=== PATIENT | male | born 1965 | race Caucasian/White ===

== ENCOUNTER 2016-05-31 10:29 | Emergency (ER) | payer BC ==
--- NOTE | 2016-05-31 12:15 | RAD ---
HISTORY: Distal fifth metacarpal pain, right hand redness and swelling and COMPARISONS: None VIEWS: 4, Frontal, lateral, and oblique views of the right hand FINDINGS: BONE DENSITY: Normal. BONES: There is no displaced fracture. JOINTS: There is no arthropathy. ALIGNMENT: There is no dislocation. SOFT TISSUES: There is coarse calcification along the palmar aspect of the fifth MCP joint. OTHER FINDINGS: None. IMPRESSION: 1. SOFT TISSUE CALCIFIC LESION ALONG THE PALMAR ASPECT OF THE FIFTH MCP JOINT. THIS MAY REPRESENT DYSTROPHIC CALCIFICATION, OR CALCIFICATION ASSOCIATED WITH CRYSTALLINE ARTHROPATHY. 2. NO ACUTE OSSEOUS INJURY. IF SYMPTOMS PERSIST, RECOMMEND REPEAT IMAGING
--- NOTE | 2016-05-31 12:31 | UC ---
Hand/Wrist HPI - HPI Summary HPI Summary: HAD BEEN RAKING THIS WEEKEND, PAIN AND SWELLING TO (DISTAL 5TH METACARPAL ASPECT OF) RIGHT HAND. NO INJURY. SWELLING. - History Of Current Complaint Chief Complaint: UCUpperExtremity Stated Complaint: HAND PAIN Time Seen by Provider: 05/31/16 11:25 Hx Obtained From: Patient Onset/Duration: Sudden Onset, Lasting Days, Still Present Severity Initially: Mild Severity Currently: Mild Character Of Pain: Dull, Aching Aggravating Factor(s): Movement, Flexion Alleviating: Nothing Associated Signs And Symptoms: Positive: Swelling Related History: Dominant Hand Right - Allergies/Home Medications Allergies/Adverse Reactions: Allergies Allergy/AdvReac Type Severity Reaction Status Date / Time No Known Allergies Allergy Verified 05/31/16 11:22 Home Medications: Home Medications Citalopram TAB* [Celexa TAB*] 10 mg PO DAILY 05/31/16 [History Confirmed ] PMH/Surg Hx/FS Hx/Imm Hx Previously Healthy: Yes - Family History Known Family History: Negative: Diabetes - Social History Occupation: Employed Full-time Lives: With Family Alcohol Use: Daily Substance Use Type: None Smoking Status (MU): Never Smoked Tobacco Review of Systems Constitutional: Negative Skin: Negative Eyes: Negative ENT: Negative Respiratory: Negative Cardiovascular: Negative Gastrointestinal: Negative Genitourinary: Negative Motor: Negative Neurovascular: Negative Musculoskeletal: Arthralgia, Edema, Myalgia Neurological: Negative Psychological: Negative All Other Systems Reviewed And Are Negative: Yes Physical Exam Triage Information Reviewed: Yes Appearance: Well-Appearing, Well-Nourished, Pain Distress - MILD Vital Signs: Initial Vital Signs Temp 98.3 F 05/31/16 11:19 Pulse 82 05/31/16 11:19 Resp 16 05/31/16 11:19 BP 136/84 05/31/16 11:19 Pulse Ox 100 05/31/16 11:19 Vital Signs Reviewed: Yes Eye Exam: Normal ENT Exam: Normal ENT: Positive: Normal ENT inspection, Hearing grossly normal, Pharynx normal, TMs normal Dental Exam: Normal Neck exam: Normal Neck: Positive: Supple, Nontender, No Lymphadenopathy Respiratory Exam: Normal Respiratory: Positive: Chest non-tender, Lungs clear, Normal breath sounds, No respiratory distress Cardiovascular Exam: Normal Cardiovascular: Positive: RRR, No Murmur Abdominal Exam: Normal Musculoskeletal: Positive: Strength Intact, ROM Intact, Edema @ - RIGHT DISTAL 5TH METACARPAL, Other: - PAIN RIGHT DISTAL 5TH METACARPAL Neurological Exam: Normal Psychological Exam: Normal Skin Exam: Normal Hand/Wrist Course/Dx - Differential Dx/Diagnosis Differential Diagnosis/HQI/PQRI: Fracture, Sprain, Strain Provider Diagnoses: RIGHT DISTAL 5TH METACARPAL:CALCIFIC LESION Discharge - Discharge Plan Condition: Stable Disposition: HOME Patient Education Materials: Finger Sprain (ED) Referrals: Jairo Cornejo MD [Medical Doctor] - Terrence Tang MD [Primary Care Provider] -
== END 2016-05-31 12:46 | disposition home or self-care (01) ==
LOC: UCEAST 10:29
DX: M25.841 Other specified joint disorders, right hand (principal)
CPT/HCPCS: 99201; G0463

== ENCOUNTER 2016-10-15 13:06 | Emergency (ER) | payer BC ==
[2016-10-15 13:12] VITALS: BP 138/92
[2016-10-15] MEDS ORDERED: Cyclobenzaprine TAB* 10 MG PO ONE (14:00)
--- NOTE | 2016-10-15 14:06 | UC ---
Back Pain HPI - HPI Summary HPI Summary: This is a 51 yo male who is otherwise healthy who presents with c/o R sided back /rib pain. Pain started suddenly last night while in the shower. He was able to get some sleep last night, but awoke this am with pain. He thought it was improving as the morning went on, but he then sneezed and had sudden severe pain , that caused him to fall to his knees. Denies recent trauma. He denies cough or SOB, but pain is worse with deep inhalation. He denies recent change in activity. [place] the [place] the track in [place]. Denies hematuria or dysuria. No radiation of the pain. No nausea or vomiting. - History of Current Complaint Chief Complaint: UCGU Stated Complaint: SIDE PAIN - Allergies/Home Medications Allergies/Adverse Reactions: Allergies Allergy/AdvReac Type Severity Reaction Status Date / Time No Known Allergies Allergy Verified 10/15/16 13:12 Home Medications: Home Medications Ibuprofen [Advil] 200 mg PO 10/15/16 [History] PMH/Surg Hx/FS Hx/Imm Hx Previously Healthy: Yes - Surgical History Surgical History: None Surgery Procedure, Year, and Place: NONE - Family History Known Family History: Positive: None Negative: Diabetes - Social History Alcohol Use: Daily Alcohol Amount: 3 drinks Substance Use Type: None Smoking Status (MU): Never Smoked Tobacco Review of Systems Constitutional: Negative Skin: Negative Eyes: Negative ENT: Negative Respiratory: Negative Cardiovascular: Negative Gastrointestinal: Negative Genitourinary: Negative Motor: Negative Neurovascular: Negative Musculoskeletal: Arthralgia, Myalgia Neurological: Negative Psychological: Negative All Other Systems Reviewed And Are Negative: Yes Physical Exam Triage Information Reviewed: Yes Appearance: Well-Appearing Vital Signs: Initial Vital Signs Temp 97.9 F 10/15/16 13:09 Pulse 79 10/15/16 13:09 Resp 16 10/15/16 13:09 BP 138/92 10/15/16 13:09 Pulse Ox 99 10/15/16 13:09 ENT Exam: Normal ENT: Positive: Hearing grossly normal Neck: Positive: Supple, Nontender Respiratory: Positive: Lungs clear. Negative: Chest non-tender - acute TTP over intercostal space between ~7-8 ribs along midscapular line, Crackles, Rhonchi, Stridor Cardiovascular: Positive: RRR, No Murmur Abdomen Description: Positive: Nontender, Soft Musculoskeletal Exam: Normal Musculoskeletal: Positive: Strength Intact Neurological Exam: Normal Neurological: Positive: Alert Psychological Exam: Normal Psychological: Positive: Normal Response To Family Skin Exam: Normal Skin: Positive: Other - no ecchymosis Diagnostics - Laboratory Diagnostic Studies Completed/Ordered: XR R rib and CXR - CXR shows no acute process, R rib films show healing fxs at the 9th and 10th ribs Back Pain Course/Dx - Course Course Of Treatment: This is an otherwise healthy 51 yo male who presents with c /o sudden onset of R rib pain. UA unremarkable, CXR demonstrates healing (9/ 10th rib fxs), he is unsure of any history that would explain rib fractures. No known CA history. Recommend that he f/u with PCP for further w/u if he does not recall a trauma that would explain rib fractures in the last 2-6 weeks. - Differential Dx/Diagnosis Differential Diagnosis/HQI/PQRI: Fracture, Strain, Sprain Provider Diagnoses: 1. Healing rib fractures of 9th/10th R ribs with associated intercostal strain and spasm Discharge - Discharge Plan Condition: Stable Disposition: HOME Prescriptions: Cyclobenzaprine TAB* [Flexeril 10 MG TAB*] 10 mg PO TID PRN #30 tab PRN Reason: pain/spasm Patient Education Materials: Rib Fracture (ED) Referrals: Terrence Tang MD [Primary Care Provider] - If Needed Additional Instructions: Activity: As tolerated Instructions: 1. Use heat and muscle relaxant as needed for pain relief 2. Use Aleve or ibuprofen for additional pain relief 3. Follow up with your PCP if you can't find another explanation for your recent rib fracture
--- NOTE | 2016-10-15 14:43 | RAD ---
Indication: RIGHT posterior rib pain without known injury. Comparison: No relevant prior exams available on the [facility] PACS for comparison. Technique: Dual energy PA chest and 2 dedicated views of the RIGHT ribs. Report: Clear lungs and pleural spaces. Negative for pneumothorax. Nondisplaced fractures with callus formation noted at the RIGHT ninth and 10th ribs laterally. No acute rib fracture evident. Unremarkable soft tissue contours. IMPRESSION: Nondisplaced fractures with callus formation at the RIGHT ninth and 10th ribs laterally. No acute rib fracture or acute intrathoracic process evident.
== END 2016-10-15 14:59 | disposition home or self-care (01) ==
LOC: UCEAST 13:06
DX: S22.41XA Multiple fractures of ribs, right side, initial encounter for closed fracture (principal); S29.011A Strain of muscle and tendon of front wall of thorax, initial encounter; X58.XXXA Exposure to other specified factors, initial encounter; Y93.9 Activity, unspecified; Y92.9 Unspecified place or not applicable
CPT/HCPCS: 81003; 99212; A9270-GY; G0463

== ENCOUNTER 2018-01-30 14:24 | Emergency (ER) | payer BC ==
--- OUTSIDE RECORDS SUMMARY | 2018-01-30 14:30 | XMS REPORT ---
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 Active Onset: 11/20/2010 Insomnia Terrence Tang M.D. Active Onset: 01/17/2015 Benign prostatic hypertrophy Terrence Tang M.D. Active without outflow obstruction Onset: 01/17/2015 Screening for malignant neoplasm of Terrence Tang M.D. Active rectum Onset: 01/17/2015 Atopic dermatitis Terrence Tang M.D. Active Onset: 09/18/2016 Degenerative joint disease Terrence Tang M.D. 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 Cigarette Use Never Smoked Cigarettes Smoking Patient has never smoked Allergies, Adverse Reactions, Alerts Date Description Reaction Status Severity Comments 02/23/2013 NKDA active Medications Medication Date Status Form Strength Qnty SIG Indications Ordering Provider Propranolol 01/07/ Active Tablets 10mg 90tab 1-2 tabs by F41.9 Danna Middleton HCL 2018 s mouth 3 Warren, times a day [employer] INSURANCE BILLER as needed for performance anxiety Zofran Odt 12/06/ Active Tablets 4mg 60tab 1-2 tab R42 Danna Middleton 2017 Dispers s under tongue Warren, every 8 [employer]ICAL INSURANCE BILLER hours as needed Citalopram 05/24/ Active Tablets 20mg 135ta take 1.5 Danna Middleton Hydrobromide 2010 bs tablet by Warren, mouth once [employer] INSURANCE BILLER daily Temazepam 05/06/ Active Capsules 15mg 60cap 2 at bedtime G47.00 Sherly 2009 s as needed 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 Furoate 2015 - times a day Clyde, 09/18/ as needed M.D. 2016 Azithromycin 11/20/ Hx Tablets 250mg 6tabs take 2 Terrence F. 2010 - tablets by Clyde, 11/11/ mouth on day M.D. 2011 1 then 1 tablet on days 2 through 5 Citalopram 05/24/ Hx Tablets 20mg 60tab 1 po qd Terrence F. Hydrobromide 2009 - s Clyde, 10/18/ M.D. 2010 Citalopram 05/06/ Hx Tablets 10mg 60tab 1 po qd Terrence F. Hydrobromide 2009 - s Clyde, M.D. 2009 Keflex 06/19/ Hx Capsules 500mg 10cap 1 PO bid Terrence F. 2007 - s Clyde, M.D. 2009 Lunesta 10/31/ Hx Tablets 2mg 90tab 1 po qhs prn Terrence F. 2004 - s Clyde, 05/06/ M.D. 2009 Prednisone 06/21/ Hx 5mg 78uni 12 PO Today, Uri Quinn 2004 - ts Decrease By Ruddy, qd Until M.D. 2003 Gone Zyrtec 06/21/ Hx Tabs 10mg 10tab 1 po qd Uri A. 2003 - s Kaiserlow, M.D. 2003 Zantac 06/21/ Hx 150mg 10uni 1 PO qd Uri A. 2003 - ts Darlow, M.D. 2003 Paxil 08/05/ Hx Tablets 20mg 90tab 1/2 po qd Terrence Cornejo 2002 - s Shallish, M.D. 2009 Sonata 06/23/ Hx 5mg 30uni one qhs Terrencesofi Cornejo 2002 - ts Shallish, M.D. 2004 Zithromax 04/11/ Hx 250mg 6unit 2 Tabs Day 1 Terrence Cornejo 2001 - s Dorianjunior, M.D. 2001 1 Tab qd Days 2 Thru 5 Augmentin 12/25/ Hx Tablets 500mg 20tab 1 PO bid Uri ASandra 2000 - s Ruddy, M.D. 2000 Duratuss GP 12/25/ Hx 20uni 1 PO Q 12 HR Uri ASandra 2000 - ts prn [facility], 01/04/ M.D. 2000 Paxil 09/09/ Hx Tablets 10mg 30tab 1 PO qd For Terrence Cornejo 2000 - 2 WKS , Then Shallish, 08/05/ 10 MG PO qod M.D. 2002 Ambien 09/09/ Hx 10mg 20uni 1 PO QHS Terrencesofi Cornejo 2000 - prn Shallish, M.D. 2002 Immunizations CPT Code Status Date Vaccine Lot # [id number] Given 01/17/2015 Tdap Tetanus, W Pertussis [id number] Vital Signs Date Vital Result Comment 01/07/2018 BP Systolic 130 mmHg BP Diastolic 90 mmHg Heart Rate 84 /min Body Temperature 98.3 F Respiratory Rate 18 /min Height 66.5 inches 5'6.50" Weight 179.00 lb BMI (Body Mass Index) 28.5 kg/m2 12/06/2016 BP Systolic 120 mmHg BP Diastolic 80 mmHg Heart Rate 68 /min Body Temperature 98.0 F Respiratory Rate 18 /min Height 66.5 inches 5'6.50" Weight 178.00 lb BMI (Body Mass Index) 28.3 kg/m2 09/18/2016 BP Systolic 116 mmHg BP Diastolic 70 mmHg Heart Rate 80 /min Body Temperature 98.8 F Respiratory Rate 16 /min Height 66.5 inches 5'6.50" Weight 178.12 lb BMI (Body Mass Index) 28.3 kg/m2 03/09/2016 BP Systolic 122 mmHg BP Diastolic 78 mmHg Heart Rate 100 /min Body Temperature 98.1 F Respiratory Rate 16 /min Height 66 inches 5'6" Weight 181.00 lb BMI (Body Mass Index) 29.2 kg/m2 01/17/2015 BP Systolic 110 mmHg BP Diastolic 62 mmHg Heart Rate 72 /min Body Temperature 97.7 F Respiratory Rate 16 /min Height 66 inches 5'6" Weight 173.00 lb BMI (Body Mass Index) 27.9 kg/m2 02/23/2013 BP Systolic 90 mmHg BP Diastolic 60 mmHg Heart Rate 78 /min Body Temperature 97.1 F Height 67 inches 5'7" Weight 169.12 lb BMI (Body Mass Index) 26.5 kg/m2 11/12/2011 BP Systolic 100 mmHg BP Diastolic 60 mmHg Heart Rate 80 /min Body Temperature 98.4 F Respiratory Rate 20 /min Height 67 inches 5'7" Weight 174.00 lb BMI (Body Mass Index) 27.2 kg/m2 11/20/2010 BP Systolic 100 mmHg BP Diastolic 60 mmHg Heart Rate 80 /min Body Temperature 98.0 F Respiratory Rate 20 /min Height 67 inches 5'7" Weight 166.00 lb BMI (Body Mass Index) 26.0 kg/m2 05/24/2009 BP Systolic 90 mmHg BP Diastolic 66 mmHg Heart Rate 66 /min Body Temperature 97.9 F Height 67 inches 5'7" Weight 168.00 lb BMI (Body Mass Index) 26.3 kg/m2 05/06/2009 BP Systolic 118 mmHg BP Diastolic 70 mmHg Heart Rate 80 /min Body Temperature 97.5 F Height 67 inches 5'7" Weight 174.00 lb BMI (Body Mass Index) 27.2 kg/m2 03/28/2009 BP Systolic 100 mmHg BP Diastolic 60 mmHg Heart Rate 76 /min Body Temperature 97.1 F Height 67 inches 5'7" Weight 176.00 lb BMI (Body Mass Index) 27.6 kg/m2 03/05/2008 BP Systolic 118 mmHg BP Diastolic 72 mmHg Heart Rate 92 /min Height 67 inches 5'7" Weight 170.00 lb BMI (Body Mass Index) 26.6 kg/m2 06/20/2007 BP Systolic 98 mmHg BP Diastolic 60 mmHg Heart Rate 60 /min Body Temperature 98.7 F Height 66.25 inches 5'6.25" Weight 164.00 lb BMI (Body Mass Index) 26.3 kg/m2 01/14/2007 BP Systolic 112 mmHg BP Diastolic 70 mmHg Heart Rate 72 /min Height 66.25 inches 5'6.25" Weight 162.00 lb BMI (Body Mass Index) 25.9 kg/m2 07/26/2006 BP Systolic 106 mmHg BP Diastolic 70 mmHg Heart Rate 72 /min Body Temperature 98.7 F Height 66.25 inches 5'6.25" Weight 164.00 lb BMI (Body Mass Index) 26.3 kg/m2 12/21/2005 BP Systolic 110 mmHg BP Diastolic 70 mmHg Heart Rate 64 /min Height 66.25 inches 5'6.25" 10/31/2004 BP Systolic 92 mmHg BP Diastolic 60 mmHg Heart Rate 72 /min Height 66.25 inches 5'6.25" Weight 163.00 lb BMI (Body Mass Index) 26.1 kg/m2 06/30/2004 BP Systolic 112 mmHg BP Diastolic 78 mmHg Heart Rate 68 /min Body Temperature 98.1 F Height 66.25 inches 5'6.25" Weight 160.00 lb BMI (Body Mass Index) 25.6 kg/m2 06/22/2003 BP Systolic 110 mmHg BP Diastolic 68 mmHg Body Temperature 97.6 F Height 66.25 inches 5'6.25" Weight 150.00 lb BMI (Body Mass Index) 24.0 kg/m2 02/12/2003 BP Systolic 112 mmHg BP Diastolic 60 mmHg Heart Rate 72 /min Body Temperature 98.4 F Height 66.25 inches 5'6.25" Weight 150.00 lb BMI (Body Mass Index) 24.0 kg/m2 09/08/2002 BP Systolic 110 mmHg BP Diastolic 70 mmHg Heart Rate 80 /min Height 67.75 inches 5'7.75" Weight 146.00 lb BMI (Body Mass Index) 22.4 kg/m2 06/23/2002 BP Systolic 94 mmHg BP Diastolic 68 mmHg Heart Rate 68 /min Body Temperature 97.1 F Height 67.75 inches 5'7.75" Weight 147.00 lb BMI (Body Mass Index) 23.0 kg/m2 10/09/2001 BP Systolic 100 mmHg BP Diastolic 66 mmHg Height 67.75 inches 5'7.75" Weight 152.00 lb BMI (Body Mass Index) 23.8 kg/m2 04/11/2001 BP Systolic 102 mmHg BP Diastolic 60 mmHg Body Temperature 98.3 F Height 67.75 inches 5'7.75" Weight 146.00 lb BMI (Body Mass Index) 22.9 kg/m2 12/25/2000 BP Systolic 102 mmHg BP Diastolic 62 mmHg Heart Rate 68 /min Body Temperature 97.1 F Respiratory Rate 18 /min Height 67.75 inches 5'7.75" Weight 140.00 lb BMI (Body Mass Index) 21.9 kg/m2 11/25/2000 BP Systolic 100 mmHg BP Diastolic 70 mmHg Heart Rate 72 /min Height 67.75 inches 5'7.75" Weight 143.00 lb BMI (Body Mass Index) 22.4 kg/m2 09/09/2000 BP Systolic 110 mmHg BP Diastolic 70 mmHg Heart Rate 82 /min Weight 138.00 lb Results Test Date Test Result H/L Range Note Laboratory test 03/19/2017 Surgical Interface SEE RESULT BELOW 1, 2 finding Order Poc Urinalysis 10/15/2016 Poc Glucose, Urine Negative Negative Poc Bilirubin, Urine Negative Negative Poc Ketone, Urine 1+ Negative Poc Specific [place], Urine 1.020 1.010-1.030 Poc Blood, Urine Negative Negative Poc pH, Urine 7.5 5-9 Poc Protein, Urine Trace Negative Poc Urobilinogen, Urine 1.0 Negative Poc Nitrite, Urine Negative Negative Poc Leukocytes, Urine Negative Negative Poc Color, Urine Yellow Poc Clarity, Urine Clear 3 Microscopic Examination 09/18/2016 Microscopic Examination See below: WBC None seen /hpf 0 - 5 RBC None seen /hpf 0 - 2 Epithelial Cells (non renal) None seen /hpf 0 - 10 Epithelial Cells (renal) TNP Casts TNP Cast Type TNP Crystals TNP Crystal Type TNP Mucus Threads TNP Bacteria None seen None seen/Few Yeast TNP Trichomonas TNP Comment TNP Laboratory test finding 09/18/2016 TSH 3.870 uIU/mL 0.450-4.500 Prostate-Specific Ag, Serum 0.5 ng/mL 0.0-4.0 4 Uric Acid, Serum 5.6 mg/dL 3.7-8.6 5 C-Reactive Protein, Quant 0.8 mg/L 0.0-4.9 CBC Electronic (a) 09/18/2016 WBC 5.5 3.6-9.6 RBC 4.57 3.90-5.70 Hemoglobin (Fma/CMC/CTX) 15.7 g/dL 12.1 - 17.2 Hematocrit (Fma/CMC/CTX) 46.9 % 36.1 - 50.3 Platelets 206 10^3/ul 150-400 Lymph% 20.1 % 17.0-48.0 Mixed% 6.4 Neutrophils % 73.5 Mean Corpuscular Vol 103 High 82.2-97.4 6 Mean Corpuscular Hemoglobin 34.3 High 27.6-33.3 Mean Corpuscular Hemo Concen 33.5 32.0-36.0 RDW 14.1 High 11.6-13.7 Mean Platelet Volume 6.1 5.5-11.0 Metabolic Panel (14), Comprehensive 09/18/2016 Glucose, Serum 96 mg/dL 65 -99 BUN 18 mg/dL 6-24 Creatinine, Serum 0.92 mg/dL 0.76-1.27 eGFR If NonAfricn Am 97 mL/min/1.73 >59 eGFR If Africn Am 112 mL/min/1.73 >59 BUN/Creatinine Ratio 20 9-20 Sodium, Serum 138 mmol/L 134-144 Potassium, Serum 4.1 mmol/L 3.5-5.2 Chloride, Serum 97 mmol/L 96-106 Carbon Dioxide, Total 25 mmol/L 18-29 Calcium, Serum 9.4 mg/dL 8.7-10.2 Protein, Total, Serum 7.5 g/dL 6.0-8.5 Albumin, Serum 4.7 g/dL 3.5-5.5 Globulin, Total 2.8 g/dL 1.5-4.5 A/G Ratio 1.7 1.2-2.2 Bilirubin, Total 0.3 mg/dL 0.0-1.2 Alkaline Phosphatase, S 79 IU/L 39-117 Ast (Sgot) 48 IU/L High 0-40 Alt (SGPT) 44 IU/L 0-44 Urinalysis, Complete 09/18/2016 Specific [place] 1.007 1.005-1.030 pH 6.5 5.0-7.5 Urine-Color Yellow Yellow Appearance Clear Clear WBC Esterase Negative Negative Protein Negative Negative/Trace Glucose Negative Negative Ketones Negative Negative Occult Blood Negative Negative Bilirubin Negative Negative Urobilinogen,Semi-Qn 0.2 EU/dL 0.2-1.0 Nitrite, Urine Negative Negative Microscopic Examination See Comment: 7 Lipid Panel 09/18/2016 Cholesterol, Total 247 mg/dL High 100-199 Triglycerides 140 mg/dL 0-149 HDL Cholesterol 82 mg/dL >39 VLDL Cholesterol Calvin 28 mg/dL 5-40 LDL Cholesterol Calc 137 mg/dL High 0-99 Comment: TNP Microscopic Examination 01/17/2015 Microscopic Examination See below: WBC 0-5 /hpf 0 - 5 RBC 0-2 /hpf 0 - 2 Epithelial Cells (non renal) None seen /hpf 0 - 10 Epithelial Cells (renal) DNR Casts DNR Cast Type DNR Crystals DNR Crystal Type DNR Mucus Threads Present Not Estab. Bacteria Few None seen/Few Yeast DNR Trichomonas DNR Comment DNR Laboratory test finding 01/17/2015 TSH 1.510 uIU/mL 0.450-4.500 Laboratory test finding 01/17/2015 Prostate-Specific Ag, 0.5 ng/mL 0.0- 4.0 8 Serum Urinalysis, Complete 01/17/2015 Specific [place] 1.024 1.005-1.030 pH 7.0 5.0-7.5 Urine-Color Yellow Yellow Appearance Clear Clear WBC Esterase Negative Negative Protein Trace Negative/Trace Glucose Negative Negative Glucose Reflex DNR Ketones Negative Negative Occult Blood Negative Negative Bilirubin Negative Negative Urobilinogen,Semi-Qn 1.0 EU/dL 0.2-1.0 Nitrite, Urine Negative Negative Microscopic Examination See Comment: 9 Lipid Panel 01/17/2015 Cholesterol, Total 203 mg/dL High 100-199 Triglycerides 177 mg/dL High 0-149 HDL Cholesterol 65 mg/dL >39 10 VLDL Cholesterol Calvin 35 mg/dL 5-40 LDL Cholesterol Calc 103 mg/dL High 0-99 Comment: DNR Comp. Metabolic Panel (14) 01/17/2015 Glucose, Serum 96 mg/dL 65-99 BUN 20 mg/dL 6-24 Creatinine, Serum 1.03 mg/dL 0.76-1.27 eGFR If NonAfricn Am 85 mL/min/1.73 >59 eGFR If Africn Am 99 mL/min/1.73 >59 BUN/Creatinine Ratio 19 9-20 Sodium, Serum 142 mmol/L 134-144 Potassium, Serum 4.4 mmol/L 3.5-5.2 Chloride, Serum 101 mmol/L 97-108 Carbon Dioxide, Total 26 mmol/L 18-29 Calcium, Serum 8.8 mg/dL 8.7-10.2 Protein, Total, Serum 6.4 g/dL 6.0-8.5 Albumin, Serum 4.4 g/dL 3.5-5.5 Globulin, Total 2.0 g/dL 1.5-4.5 A/G Ratio 2.2 1.1-2.5 Bilirubin, Total 0.3 mg/dL 0.0-1.2 Alkaline Phosphatase, S 68 IU/L 39-117 Ast (Sgot) 30 IU/L 0-40 Alt (SGPT) 37 IU/L 0-44 CBC With Differential/Platelet 01/17/2015 WBC 4.4 x10E3/uL 3.4-10.8 RBC 4.38 x10E6/uL 4.14-5.80 Hemoglobin 14.8 g/dL 12.6-17.7 Hematocrit 43.4 % 37.5-51.0 MCV 99 fL High 79-97 MCH 33.8 pg High 26.6-33.0 MCHC 34.1 g/dL 31.5-35.7 RDW 12.9 % 12.3-15.4 Platelets 206 x10E3/uL 150-379 Neutrophils 66 % Lymphs 17 % Monocytes 15 % Eos 2 % Basos 0 % Immature Cells DNR Neutrophils (Absolute) 2.8 x10E3/uL 1.4-7.0 Lymphs (Absolute) 0.8 x10E3/uL 0.7-3.1 Monocytes(Absolute) 0.7 x10E3/uL 0.1-0.9 Eos (Absolute) 0.1 x10E3/uL 0.0-0.4 Baso (Absolute) 0.0 x10E3/uL 0.0-0.2 Immature Granulocytes 0 % Immature Grans (Abs) 0.0 x10E3/uL 0.0-0.1 NRBC DNR Hematology Comments: DNR Laboratory test finding 06/20/2007 Throat - Beta Strep Fma NEG @ 48 HOURS Ua - Non Micro (Fma New) 02/12/2003 Appearance CLEAR Color LT YELLOW Glucose NEG Bilirubin NEG Ketones NEG SP Grav 1.010 Blood NEG PH 7.5 Protein NEG Urobil 0.2 Nitrite NEG Leukocytes NEG 1 [id number] 2 SEE RESULT BELOW Name: KELLY,RUDY Dann : [address]: Brigido Kapoor MD Acct: [id number] Unit: [id number] AGE: 51 Location: [facility] Re03/19/17 SEX: M Status: DEP REF SPEC: [id number] JORGE: 03/19/17- SUBM DR: Brigido Kapoor MD REQ: [id number] RECD: 03/19/17 STATUS: JESS COLEMAN DR: Terrence Tang MD _ ORDERED: LEVEL 4 COMMENTS: [id number] FINAL DIAGNOSIS Colon, 60 cm, biopsy: -- Hyperplastic polyp. CLINICAL HISTORY Screening, average risk POST-OPERATIVE DIAGNOSIS Colonoscopy to cecum ? 3 mm snare at 60 cm; tics; 10 years GROSS DESCRIPTION The specimen is received in formalin labeled, Colon Polyp at 60 cm, and consists of a 0.4 by up to 0.3 x 0.1 cm sotomayor-white irregular to polypoid soft tissue fragment, which is entirely submitted in one cassette. Signed (signature on file) Ish Rousseau MD 1530 END OF REPORT * ML=Testing performed at Main Lab DEPARTMENT OF PATHOLOGY, [address] [place] [address] Ish Rousseau M.D. Director [facility] # [id number] 3 Licensed Retail Supervisor: [id number] Prashanth ECLIA methodology. According to the [place] [employer], Serum PSA should decrease and remain at undetectable levels after radical prostatectomy. The AUA defines biochemical recurrence as an initial PSA value 0.2 ng/mL or greater followed by a subsequent confirmatory PSA value 0.2 ng/mL or greater. Values obtained with different assay methods or kits cannot be used interchangeably. Results cannot be interpreted as absolute evidence of the presence or absence of malignant disease. 5 Therapeutic target for gout patients: <6.0 6 result rechecked 7 Microscopic follows if indicated. 8 Prashanth ECLIA methodology. According to the [place] [employer], Serum PSA should decrease and remain at undetectable levels after radical prostatectomy. The AUA defines biochemical recurrence as an initial PSA value 0.2 ng/mL or greater followed by a subsequent confirmatory PSA value 0.2 ng/mL or greater. Values obtained with different assay methods or kits cannot be used interchangeably. Results cannot be interpreted as absolute evidence of the presence or absence of malignant disease. 9 Microscopic follows if indicated. 10 According to ATP-III Guidelines, HDL-C >59 mg/dL is considered a negative risk factor for CHD. Procedures Date CPT Code Description Status 03/19/2017 Colonoscopy Completed 09/18/2016 11422 Electrocardiogram Complete Completed 01/17/2015 50078 Electrocardiogram Complete Completed 02/12/2003 35317 Electrocardiogram Complete Completed 02/12/2003 10404 Remove Skin Tags Up To 15 Completed Encounters Type Date Location Provider CPT E/M Dx Office Visit 12/06/2016 10:45a [facility] Danna Warren, TORO 57981 R42 Office Visit 09/18/2016 5:00p [facility] Office Terrence Tang M.D. 48955 G47.00 F32.89 L20.89 M15.0 Z00.00 Office Visit 03/09/2016 1:15p [facility] Office Caroline Maxwell ESTHER 06196 G47.00 Office Visit 01/17/2015 1:00p [facility] Terrence Tang M.D. 88378 N40.0 F32.8 Z12.12 L20.89 G47.00 Z00.00 Z23 Office Visit 02/23/2013 1:40p [facility] Terrence Tang M.D. 48259 311 V70.0 600.00 599.70 Office Visit 11/12/2011 3:20p [facility] Terrence Tang M.D. 98354 311 V70.0 V76.41 Office Visit 11/20/2010 2:20p [facility] Terrence Tang M.D. 90328 311 780.52 465.9 600.00 Office Visit 05/24/2009 3:20p [facility] Office Terrence Tang M.D. 41427 300.00 Office Visit 05/06/2009 9:40a [facility] Terrence Tang M.D. 35493 311 Office Visit 03/28/2009 2:20p [facility] Terrence Tang M.D. 65983 311 600.00 V70.0 Office Visit 03/05/2008 9:40a [facility] Office Terrence Tang M.D. 32528 311 780.52 719.47 V77.91 V76.41 Office Visit 06/20/2007 2:40p Main Office Terrence Tang M.D. 39513 388.70 Office Visit 01/14/2007 2:40p Main Office Terrence Tang M.D. 57062 311 780.52 Office Visit 07/26/2006 4:00p Main Office Darya Harvey 62564 462 Office Visit 12/21/2005 3:45p Main Office Terrence Tang M.D. 82983 311 780.52 Office Visit 10/31/2004 5:45p Main Office Terrence Tang M.D. 85177 780.52 311 Office Visit 06/30/2004 11:40a Main Office Gamaliel Flood M.D. 96959 848.9 Office Visit 06/22/2003 10:40a Main Office Uri Fox M.D. 40573 692.6 Office Visit 02/12/2003 2:30p Main Office Terrence Tang M.D. 05674 V70.0 300.4 701.9 Office Visit 09/08/2002 9:15a Main Office Terrence Tang M.D. 16356 780.52 300.4 Office Visit 06/23/2002 3:15p [facility] Office Terrence Tang M.D. 38680 300.4 Office Visit 10/09/2001 8:00a Main Office Terrence Tang M.D. 63097 Office Visit 04/11/2001 2:10p [facility] Terrence Tang M.D. 99067 Office Visit 12/25/2000 2:20p [facility] Uri Fox M.D. 67046 Office Visit 11/25/2000 10:00a [facility] Office Terrence Tang M.D. 77560 Office Visit 09/09/2000 2:20p [facility] Office Terrence Tang M.D. 21730 Plan of Care Future Appointment(s):02/18/2018 4:15 pm - Danna Warren NP at [facility] [id number]/17/2018 2:00 pm - Terrence Tang M.D. at [facility] [id number] - Danna Warren, [id number] Dizziness and giddinessComments:Do not drive or operate heavy machinery if experiencing dizziness. Make sure you are drinking at least 8-10 glasses of water a dayReturn or seek medical care for the following: numbness or tingling of your extremitieschest painsevere headachechange in your visionchange in speech loss of consciousness Notify office if worsening symptoms or failure to improve.F41.9 Anxiety disorder, unspecifiedNew Medication:Propranolol HCL 10 mgComments:Taking medicine and going to talk therapy can get you started on the road to feeling better. It can also help you take care of your body and relationships. To help improve your condition:Get enough sleep.Eat healthy foods.Keep a regular daily schedule.Get out of the house every day.Exercise every day.Even a little bit of exercise, such as a 15-minute walk, can help.Stay away from alcohol and street drugs.Talk with family or friends when you feel nervous or frightened.Find out about different types of group activities you can join. Will increase citalopram and add propanololFollow up:6-8 weeks, sooner for concernsAllComments:~B_~U_ Medication Management~b_~u_ Patient Understands medications he 's taking? Yes No Are there Barriers to Adherence? Yes No Has the patient been asked about herbal supplements and therapies, and OTC meds? Yes No ~B_~U_Care Plan~b_~u_1. Patient has been queried about patient's goals/ preferences and functional/lifestyle goals at relevant visits. If relevant, describe: na2. Treatment goals as explained to the patient: above3. Are there barriers to meeting treatment goals? Yes No If Yes, please describe:4. Self-Management goals as described to the patient:Yes NoAs always, we strongly encourage a healthy diet and making physical activity a part of your every day life. If you have questions about how or where to start, please contact the office.Follow up:Please schedule a full preventative well visit at your earliest convenience
[2018-01-30 14:39] VITALS: BP 128/95
--- NOTE | 2018-01-30 15:05 | UC ---
Abdominal Pain Male HPI - HPI Summary HPI Summary: 52-year-old male comes in with a chief complaint of left lower quadrant abdominal pain. Started yesterday has mild discomfort and its gradually gotten worse. It's about 5 out of 10. No fevers or chills. Pain is worse with bending forward it's slightly better with standing upright. Denies any scrotal pain or swelling. It is worse with pushing in the left lower quadrant. Patient 's been drinking a lot of water he does feel like he has less urination that he would expect. He had a normal colonoscopy about a year and a half ago. Had a normal bowel movement today that did not make the pain worse or better. No trauma. No vomiting does not really feel nauseous but he does not really have much of an appetite today. - History of Current Complaint Chief Complaint: UCGU Stated Complaint: GROIN PAIN Time Seen by Provider: 01/30/18 14:45 Pain Intensity: 5 - Allergies/Home Medications Allergies/Adverse Reactions: Allergies Allergy/AdvReac Type Severity Reaction Status Date / Time No Known Allergies Allergy Verified 01/30/18 14:40 PMH/Surg Hx/FS Hx/Imm Hx Previously Healthy: Yes - Surgical History Surgical History: None Surgery Procedure, Year, and Place: NONE - Family History Known Family History: Positive: None Negative: Diabetes - Social History Alcohol Use: Daily Alcohol Amount: 3 drinks Substance Use Type: None Smoking Status (MU): Never Smoked Tobacco Review of Systems All Other Systems Reviewed And Are Negative: Yes Constitutional: Positive: Negative Skin: Positive: Negative Eyes: Positive: Negative ENT: Positive: Negative Respiratory: Positive: Negative Cardiovascular: Positive: Negative Gastrointestinal: Positive: Abdominal Pain Genitourinary: Positive: Other - SEE HPI. Negative: Dysuria, Hematuria, Frequency, Urgency Motor: Positive: Negative Neurovascular: Positive: Negative Musculoskeletal: Positive: Negative Neurological: Positive: Negative Psychological: Positive: Negative Is Patient Immunocompromised?: No Physical Exam Triage Information Reviewed: Yes Appearance: Well-Appearing, No Pain Distress, Well-Nourished Vital Signs: Initial Vital Signs Temp 98.5 F 01/30/18 14:32 Pulse 97 01/30/18 14:32 Resp 16 01/30/18 14:32 BP 128/95 01/30/18 14:32 Pulse Ox 98 01/30/18 14:32 Vital Signs Reviewed: Yes Eye Exam: Normal Eyes: Positive: Conjunctiva Clear ENT: Positive: Other - PHARYNX MOIST Neck exam: Normal Neck: Positive: Supple Respiratory: Positive: Lungs clear, Normal breath sounds, No respiratory distress Cardiovascular Exam: Normal Cardiovascular: Positive: RRR Abdomen Description: Positive: Other: - MILD TENDERNESS TO PALPATION LLQ. NO INGUINAL TENDERNESS OR SWELLING. ABD NT TO PALPATION OTHERWISE Bowel Sounds: Positive: Present Male Genital Exam: Positive: Normal Genitalia, No Hernia, Other - NORMAL SCROTAL /TESTICULAR EXAM. Negative: Scrotum Tenderness (R), Scrotum Tenderness (L), Testicular Tenderness (R), Testicular Tenderness (L), Urethral Discharge Musculoskeletal Exam: Normal Musculoskeletal: Positive: Strength Intact, ROM Intact Neurological Exam: Normal Neurological: Positive: Alert, Muscle Tone Normal Psychological Exam: Normal Psychological: Positive: Age Appropriate Behavior Skin Exam: Normal Abd Pain Male Course/Dx - Course Course Of Treatment: Order Information: CT ABD/PEL W/O. Accession Number: [id number]. CPT: 94987. Indication: Left lower quadrant pain. CT of the abdomen and pelvis was performed without oral or IV contrast administration. Coronal and sagittal reconstructed images were obtained. The lung bases demonstrate no pleural fluid, nodules or masses. Heart is of normal size. without evidence pericardial effusion. The liver is normal in size. Diffusely decreased density is noted consistent with hepatic. steatosis. The pancreas demonstrates no mass or pancreatic duct dilatation. The spleen is. normal in size. No adrenal masses are noted. The kidneys demonstrate no hydronephrosis. No. retroperitoneal lymphadenopathy is noted. No dilated loops of bowel are noted. Colon is filled with stool. Appendix is visualized. and is normal. CT of the pelvis demonstrates no pelvic adenopathy. Urinary bladder is partially. collapsed. There is wall thickening and pericolonic infiltration of FAT at the sigmoid. colon with reticulation and edema noted. Findings are consistent with diverticulitis. No. definite abscess or localized perforation is noted. The prostate and seminal vesicles are unremarkable. IMPRESSION: Diverticulitis of the sigmoid colon without evidence of peridiverticular. abscess. No localized perforation is noted. ___. <Electronically signed by Thu Sinha MD in [facility]> 01/30/18 0292. I discussed the CT report with the patient. There is no perforation no abscess seen. The plan is to treat with Cipro and Flagyl and follow-up with his primary care doctor. We discussed possible complications of abscess and perforation and the patient knows that if he gets worse he is to go directly to the emergency department for further evaluation and treatment. - Differential Dx/Clinical Impression Provider Diagnosis: Diverticulitis Discharge - Sign-Out/Discharge Documenting (check all that apply): Patient Departure All imaging exams completed and their final reports reviewed: Yes - Discharge Plan Condition: Stable Disposition: HOME Prescriptions: Ciprofloxacin TAB* [Cipro 500 MG TAB*] 500 mg PO BID #20 tab metroNIDAZOLE [Flagyl 500 MG TAB] 500 mg PO TID #30 tab Patient Education Materials: Diverticulitis (ED) Referrals: Terrence Tang MD [Primary Care Provider] - Additional Instructions: FOLLOW UP WITH YOUR DOCTOR. GET RECHECKED FOR ANY WORSENING OF YOUR CONDITION; PAIN, FEVER, YOU FEEL ILL OR QUESTIONS OR CONCERNS. - Billing Disposition and Condition Condition: STABLE Disposition: Home
== END 2018-01-30 16:20 | disposition home or self-care (01) ==
LOC: UCEAST 14:24
DX: K57.92 Diverticulitis of intestine, part unspecified, without perforation or abscess without bleeding (principal)
CPT/HCPCS: 74176; 81003; 99212; G0463